=== PATIENT | female | born 1985 | race Asian ===

== ENCOUNTER 2024-10-12 15:34 | Emergency (ER) | payer MEDICAID ==
[~2024-10-12] VITALS: Ht 154.9 cm; Wt 128.0 kg
[2024-10-12 15:51] VITALS: O2SAT 100
[2024-10-12] MEDS: CEFTRIAXONE SODIUM 1G VIAL IM ONE (17:38)
[2024-10-12] MEDS ORDERED: IBUP-2030 MT (17:43)
[2024-10-12] MEDS ORDERED: AMOX1TAB16 MT (17:43)
[2024-10-12] MEDS ORDERED: DEXAMETHASONE 0.5MG/5ML ORAL SYR PO ONE (17:45)
[2024-10-12] MEDS: DEXAMETHASONE 10 MG/ML VIAL PO NR (18:03)
[2024-10-12 18:06] VITALS: BP 157/110; PULSE 80; RESP 17; TEMP 36.8; O2SAT 100
== END 2024-10-12 18:09 | disposition home or self-care (01) ==
LOC: ER 15:34
DX: J03.90 Acute tonsillitis, unspecified (principal)
CPT/HCPCS: 96372; 99283; J0696; J1100; Z7610; J8540